=== PATIENT | male | born 1975 | race Caucasian/White ===

== ENCOUNTER 2019-01-02 16:32 | Emergency (ER) | payer OTHER ==
--- NOTE | 2019-01-02 19:20 | ED Physician Documentation ---
History of Present Illness - Stated complaint Stated Complaint: MIGRAINE X4 DAYS - Chief complaint Chief Complaint: Neuro - Additonal information Additional information: 43-year-old male presents with a severe headache. Patient states that it began 4 days ago and was somewhat gradual in onset, it has been worsening since then. It is now 10 out of 10, it is bifrontal, and radiates somewhat towards the back of his head. He has photophobia, and his headache is worse when he bends forward, he has some pain/stiffness in his neck when he leans forward as well. He went into the [facility] yesterday, and he had a CT scan of his head done which was reportedly unremarkable. They told him to take ibuprofen and to go home. The pain has gotten more severe than ever, and he states it is currently 10 out of 10, bifrontal, nonradiating. He denies any weakness, numbness or tingling. He denies any history of headaches, states this is very out of the ordinary for him. His states that he has had some low-grade fever to 100 F. 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 He has had several episodes of vomiting. He was sick with cough, rhinorrhea 1-2 weeks ago, but denies those symptoms at this time. Review of Systems Eyes: reports: Photophobia Nose: denies: Rhinorrhea / runny nose Cardiac: denies: Chest pain / pressure GI: reports: Vomiting. denies: Abdominal Pain Skin: denies: Rash Neurologic: reports: Headache Immunocompromised: denies: Immunocompromised PD PAST MEDICAL HISTORY - Past Surgical History General: Other (hernia repair) - Present Medications Home Medications: Ambulatory Orders Medication Instructions Recorded Confirmed Metoclopramide [Reglan] 10 mg PO Q6H PRN #15 tablet 01/03/19 Oxycodone HCl/Acetaminophen 1 - 2 each PO Q6H PRN #14 tablet 01/03/19 [Percocet 5-325 mg Tablet] diphenhydrAMINE [Benadryl] 25 - 50 mg PO Q4-6H PRN #20 capsule 01/03/19 - Allergies Allergies/Adverse Reactions: Allergies Allergy/AdvReac Type Severity Reaction Status Date / Time No Known Drug Allergies Allergy Verified 01/02/19 17:02 - Living Situation Living Arrangement: reports: At home - Social History Smoking Status: Former smoker - Immunizations Immunizations are current?: Yes PD ED PE NORMAL - Vitals Vital signs reviewed: Yes - General General: Alert and oriented X 3, Other (Extremely uncomfortable appearing) - HEENT HEENT: PERRL - Neck Neck: Supple, no meningeal sign - Cardiac Cardiac: RRR, No murmur - Respiratory Respiratory: No respiratory distress, Clear bilaterally - Abdomen Abdomen: Soft, Non tender, Non distended - Derm Derm: Warm and dry - Neuro Neuro: Alert and oriented X 3, cloth grader 2-12 intact, No motor deficit, No sensory deficit, Normal speech - Psych Psych: Normal mood, Normal affect Results - Vitals Vitals: Vital Signs - 24 hr 01/02/19 01/02/19 01/02/19 17:00 19:56 21:13 Temperature 37 C 99.9 C H Heart Rate 84 82 86 Respiratory 18 18 18 Rate Blood Pressure 138/91 H 146/82 H 115/58 L O2 Saturation 99 100 98 01/02/19 23:55 Temperature 36.6 C Heart Rate 78 Respiratory 14 Rate Blood Pressure 108/58 L O2 Saturation 99 Oxygen O2 Source Room air - Labs Labs: Microbiology 01/02/19 22:45 CSF Culture - Preliminary Cerebral Spinal Fluid Laboratory Tests 01/02/19 01/02/19 01/02/19 19:37 19:37 19:37 WBC 8.8 RBC 5.20 Hgb 15.3 Hct 45.4 MCV 87.3 MCH 29.4 MCHC 33.7 RDW 12.1 Plt Count 216 MPV 10.1 Neut # (Auto) 6.2 Lymph # (Auto) 1.6 [place] # (Auto) 0.9 Eos # (Auto) 0.0 Baso # (Auto) 0.1 Absolute Nucleated RBC 0.00 Nucleated RBC % 0.0 PT 13.1 H INR 1.2 Sodium 140 Potassium 4.1 Chloride 103 Carbon Dioxide 28 Anion Gap 9.0 BUN 15 Creatinine 1.1 Estimated GFR (MDRD) 73 L Glucose 127 H Calcium 9.3 Total Bilirubin 0.9 AST 19 ALT 26 Alkaline Phosphatase 79 Total Protein 7.8 Albumin 4.3 Globulin 3.5 Albumin/Globulin Ratio 1.2 Lipase 23 CSF Color CSF Clarity Xanthrochromic CSF WBC CSF RBC CSF Cell Count Tube # CSF Neutrophils CSF Lymphocytes CSF Monocytes CSF Eosinophils % CSF Basophils CSF Glucose CSF Total Protein 01/02/19 22:45 WBC RBC Hgb Hct MCV MCH MCHC RDW Plt Count MPV Neut # (Auto) Lymph # (Auto) [place] # (Auto) Eos # (Auto) Baso # (Auto) Absolute Nucleated RBC Nucleated RBC % PT INR Sodium Potassium Chloride Carbon Dioxide Anion Gap BUN Creatinine Estimated GFR (MDRD) Glucose Calcium Total Bilirubin AST ALT Alkaline Phosphatase Total Protein Albumin Globulin Albumin/Globulin Ratio Lipase CSF Color COLORLESS CSF Clarity CLEAR Xanthrochromic ABSENT CSF WBC 8 H CSF RBC 1 CSF Cell Count Tube # CSF TUBE# 3 CSF Neutrophils 78 H CSF Lymphocytes 20 L CSF Monocytes 2 L CSF Eosinophils % 0 CSF Basophils 0 CSF Glucose 75 H CSF Total Protein 41 PD MEDICAL DECISION MAKING - ED course Complexity details: considered differential ED course: On examination patient is very uncomfortable, he is nontoxic-appearing his neurologic exam is unremarkable. Patient does have some photophobia and neck stiffness. IV was inserted, patient was given Reglan, and Benadryl with good effect, he was able to get a bit of rest and his headache dropped in half in its intensity. Labs are drawn, he has no leukocytosis, his abdominal panel is unremarkable. He has a negative CT scan, however this was performed greater than 6 hours after the onset of his headache, and his headache is become more severe since the time of the CT scan yesterday, I discussed with him Lumbar puncture to rule out subarachnoid hemorrhage, and to evaluate for meningitis. After patient consented to this, LP was performed, shows 8 white blood cells, which is slightly elevated over the normal range of 0-5 to glucose and protein were normal. Gram stain was negative. I discussed the case with Dr. Serra, our hospitalist, who did not feel the patient required hospitalization for potential viral meningitis given his reassuring CSF. Dr. Laura Enriquez of infectious disease at was consulted by phone, after Reviewing the case with her she agrees that patient does not require admission from an infectious disease standpoint, she does not feel that he requires empiric antibiotics or acyclovir at this time. Although clinically I am concerned for meningitis, with only the mild WBC elevation this is called into question. Patient was given Toradol and sumatriptan, I discussed with him that we do not see signs of bleed or infection as a source of his headache, and he appears appropriate for a trial of outpatient therapy. I prescribed him Reglan, Benadryl, small number of Percocet to use at home for headache if needed, and I also discussed strict return precautions including new symptoms such as weakness or numbness, fever 100.4F or above, confusion, or any other concerning symptoms. Patient agreed with this plan and was discharged home in the care of his . Departure - Departure Disposition: Home, Self Care Clinical Impression: Headache Qualifiers: Headache type: unspecified Headache chronicity pattern: acute headache Intractability: not intractable Qualified Code(s): R51 - Headache Condition: Good Instructions: ED Cephalgia Unspecified Follow-Up: STARR ROMANO MD [Primary Care Provider] - Within 1 week Prescriptions: diphenhydrAMINE [Benadryl] 25 - 50 mg PO Q4-6H PRN #20 capsule PRN Reason: Nausea / Vomiting Metoclopramide [Reglan] 10 mg PO Q6H PRN #15 tablet PRN Reason: Nausea / Vomiting Oxycodone HCl/Acetaminophen [Percocet 5-325 mg Tablet] 1 - 2 each PO Q6H PRN #14 tablet PRN Reason: pain Comments: You were seen today for headache. Your lumbar puncture did not show signs of a bleed, you did have slightly elevated white blood cell count in the fluid, which may suggest a virus causing your headache, but this does not need specific treatment and at this time and appears safe for you to go home. You may manage your headache with Tylenol, ibuprofen, and Reglan for nausea and vomiting. If these are not effective you may use the Percocet. If you are developing vomiting despite the nausea medications, weakness or numbness, or any other worsening symptoms, please return to the emergency department. Please follow-up with your primary care provider this week if possible on your symptoms.
[2019-01-02] MEDS ORDERED: METOCLOPRAMIDE 10 MG/2 ML VIAL IVP STA (19:30)
[2019-01-02] MEDS ORDERED: diphenhydrAMINE INJ 50 MG/ML VIAL IVP STA (19:30)
[2019-01-02] MEDS ORDERED: SODIUM CHLORIDE 0.9% 1,000 ML IV ONE (19:30)
[2019-01-02] MEDS ORDERED: MORPHINE 2 MG/ML CARPUJECT IVP STA (19:31)
[2019-01-02 19:44] LABS: BASOPHILS # (AUTO) 0.1 10^3/uL (0.0-0.1); BASOPHILS % (AUTO) 0.6 %; EOSINOPHILS % (AUTO) 0.1 %; HGB - HEMOGLOBIN 15.3 g/dL (14.0-18.0); LYMPHOCYTES # (AUTO) 1.6 10^3/uL (1.5-3.5); LYMPHOCYTES % (AUTO) 17.7 %; MEAN CORPUSCULAR HEMOGLOBIN 29.4 pg (27.0-31.0); MEAN CORPUSCULAR HGB CONC 33.7 g/dL (32.0-36.0); MEAN CORPUSCULAR VOLUME 87.3 fL (80.0-94.0); MEAN PLATELET VOLUME 10.1 fL (7.4-11.4); MONOCYTES # (AUTO) 0.9 10^3/uL (0.0-1.0); MONOCYTES % (AUTO) 10.6 %; NEUTROPHILS # (AUTO) 6.2 10^3/uL (1.5-6.6); NEUTROPHILS % (AUTO) 70.7 %; PLT - PLATELET COUNT 216 10^3/uL (130-450); RED CELL DISTRIBUTION WIDTH 12.1 % (12.0-15.0); WHITE BLOOD COUNT 8.8 x10^3/uL (4.8-10.8)
[2019-01-02 19:59] LABS: INR 1.2 (0.8-1.2); PT - PROTHROMBIN TIME 13.1 secs (9.9-12.6)
[2019-01-02 20:01] LABS: ALBUMIN 4.3 g/dL (3.2-5.5); ALBUMIN/GLOBULIN RATIO 1.2 (1.0-2.2); BILIRUBIN,TOTAL 0.9 mg/dL (0.2-1.0); CALCIUM 9.3 mg/dL (8.5-10.3); CREATININE 1.1 mg/dL (0.6-1.2); TOTAL PROTEIN 7.8 g/dL (6.7-8.2)
[2019-01-02] MEDS ORDERED: MIDAZOLAM 2 MG/2 ML VIAL IVP STA ×2 (21:31→23:07)
[2019-01-02] MEDS ORDERED: LIDOCAINE 2% 10 ML MDV ONE (22:22)
[2019-01-02] MEDS ORDERED: MIDAZOLAM 2 MG/2 ML VIAL ONE (22:22)
[2019-01-02 23:18] LABS: CSF - GLUCOSE 75 mg/dL (45-70)
[2019-01-02 23:41] LABS: CLARITY,CSF CLEAR (CLEAR); CSF TUBE # CSF TUBE# 3
[2019-01-02 23:42] LABS: COLOR,CSF COLORLESS (COLORLESS); CSF XANTHOCHROMIA ABSENT (ABSENT); RED BLOOD CELL,CSF 1 /mm^3 (0-1); WHITE BLOOD CELL,CSF 8 /mm^3 (0-5)
[2019-01-03 00:05] LABS: BASOPHILS,CSF 0 %; EOSINOPHILS,CSF 0 %; LYMPHOCYTES,CSF 20 % (40-80); MONOCYTES,CSF 2 % (15-45); NEUTROPHILS,CSF 78 % (0-6)
[2019-01-03] MEDS ORDERED: MORPHINE 2 MG/ML CARPUJECT IVP STA (00:21)
[2019-01-03] MEDS ORDERED: SUMAtriptan 6 MG/0.5 ML VIAL SUBQ STA (01:12)
[2019-01-03] MEDS ORDERED: KETOROLAC 15 MG/ML VIAL IVP STA (01:13)
[2019-01-03 01:49] VITALS: BP 118/54
[2019-01-05 13:18] LABS: HSV 2 IGG TYPE SPECIFIC AB <0.90 index
== END 2019-01-03 01:49 | disposition home or self-care (01) ==
LOC: ED 16:32
DX: R51 Headache (principal); M43.6 Torticollis; H53.149 Visual discomfort, unspecified; D72.829 Elevated white blood cell count, unspecified; Z87.891 Personal history of nicotine dependence
CPT/HCPCS: 36415; 62270; 80053; 82945; 83690; 84157; 85025; 85610; 86695; 86696; 87070; 87205; 89051; 96361; 96374; 96375; 96376; 99284; 99285; J1200; J2765